=== PATIENT | male | born 1980 | race Caucasian/White ===

== ENCOUNTER 2016-10-31 09:12 | Emergency (ER) | payer MEDICAID ==
[~2016-10-31] VITALS: Ht 167.6 cm; Wt 65.8 kg
--- NOTE | 2016-10-31 09:19 | NUR ---
pt awaiting for md Paz
--- NOTE | 2016-10-31 09:23 | NUR ---
chelsy at the bedside talking to the pt.
--- NOTE | 2016-10-31 10:11 | NUR ---
pt in route to ct via [facility].
[2016-10-31] MEDS ORDERED: IBUPROFEN 800 MG TABLET PO ONE (10:15)
[2016-10-31] MEDS ORDERED: IBUPROFEN 800 MG TABLET ONE (10:21)
--- NOTE | 2016-10-31 10:32 | NUR ---
pt returned from radiology, motrin given orally.
--- NOTE | 2016-10-31 12:11 | NUR ---
mse completed. pt d/c'd home act/work note given. pt ambulated w/o diff, took bicycle and all belongings, pt's family present and to drive.
[2016-10-31 12:14] VITALS: BP 125/75
== END 2016-10-31 12:14 | disposition home or self-care (01) ==
LOC: ER 09:14
DX: S09.90XA Unspecified injury of head, initial encounter (principal); S50.02XA Contusion of left elbow, initial encounter; S80.212A Abrasion, left knee, initial encounter; R42 Dizziness and giddiness; R51 Headache; V19.9XXA Pedal cyclist (driver) (passenger) injured in unspecified traffic accident, initial encounter; Y93.89 Activity, other specified; Y99.8 Other external cause status; Y92.89 Other specified places as the place of occurrence of the external cause
CPT/HCPCS: 70450; 72125; 73551; 99284; A4663